=== PATIENT | female | born 1995 | race Asian ===

== ENCOUNTER 2017-06-16 08:08 | Inpatient (IN) | payer OTHER ==
[~2017-06-16] VITALS: Ht 160 cm; Wt 47.5 kg
[2017-06-16] VITALS (10 sets, daily range): BP systolic 98–104; BP diastolic 60–67; PULSE 60–90; RESP 17; TEMP 98–98.1; O2SAT 99–100
[2017-06-16] MEDS ORDERED: HEPARIN-NS/PF INJ 0 ML ONE (08:57)
[2017-06-16] MEDS ORDERED: HEPARIN SODIUM - IV 10,000 UNITS/10 ML VIAL ONE (08:57)
[2017-06-16] MEDS ORDERED: PROTAMINE SULFATE 50 MG/5 ML VIAL ONE (08:57)
[2017-06-16] MEDS ORDERED: ceFAZolin 2 GM PREMIX 0 ML ONE (08:57)
--- NOTE | 2017-06-16 09:03 | HHI.HP ---
History of Present Illness Chief Complaint: L LE claudication History of Present Illness 22 yo girl w B LE PAES, s/p R LE bypass. Has no arterial deficits on neutral positioning but + symptoms. Presents for popliteal release Past/Family/Social History Past Medical History PAES Past Surgical History R popliteal bypass R LE fasciectomy Social History nonsmoker Family History [place] Review of Systems Constitutional: DENIES: Diaphoretic episodes, Fatigue, Fever, Weight gain, Weight loss, Chills, Dizziness, Change in appetite, Night Sweats Respiratory: DENIES: Apneas, Cough, Snoring, Wheezing, Hemoptysis, Sputum production, Shortness of breath Physical Exam Neuro: alert, oriented HEENT: NC/AT. Neck: no JVD Heart: reg rate, no M Lungs: clear B Abdomen: NT Vascular: palp pulses Caprini VTE Risk Assessment Caprini VTE Risk Assessment: No/Low Risk (score <= 1) Caprini Risk Assessment Model Point Value = 1 Point Value = 2 Point Value = 3 Point Value = 5 Age 41-60 Minor surgery BMI > 25 kg/m2 Swollen legs Varicose veins or History of unexplained or recurrent spontaneous Oral contraceptives or hormone replacement Sepsis (< 1 month) Serious lung disease, including pneumonia (< 1 month) Abnormal pulmonary function Acute myocardial infarction Congestive heart failure (< 1 month) History of inflammatory bowel disease Medical patient at bed rest Age 61-74 Arthroscopic surgery Major open surgery (> 45 min) Laparoscopic surgery (> 45 min) Malignancy Confined to bed (> 72 hours) Immobilizing plaster cast Central venous access Age >= 75 History of VTE Family history of VTE Factor V Leiden Prothrombin [id number] Lupus anticoagulant Anticardiolipin antibodies Elevated serum homocysteine Heparin-induced thrombocytopenia Other congenital or acquired thrombophilia Stroke (< 1 month) Elective arthroplasty Hip, pelvis, or leg fracture Acute spinal cord injury (< 1 month) Prophylaxis Regimen Total Risk Factor Score Risk Level Prophylaxis Regimen 0-1 Low Early ambulation 2 Moderate Order ONE of the following: *Sequential Compression Device (SCD) *Heparin 5000 units SQ BID 3-4 Higher Order ONE of the following medications: *Heparin 5000 units SQ TID *Enoxaparin/Lovenox 40 mg SQ daily (WT < 150 kg, CrCl > 30 mL/min) *Enoxaparin/Lovenox 30 mg SQ daily (WT < 150 kg, CrCl > 10-29 mL/min) *Enoxaparin/Lovenox 30 mg SQ BID (WT < 150 kg, CrCl > 30 mL/min) AND/OR *Sequential Compression Device (SCD) 5 or more Highest Order ONE of the following medications: *Heparin 5000 units SQ TID (Preferred with Epidurals) *Enoxaparin/Lovenox 40 mg SQ daily (WT < 150 kg, CrCl > 30 mL/min) *Enoxaparin/Lovenox 30 mg SQ daily (WT < 150 kg, CrCl > 10-29 mL/min) *Enoxaparin/Lovenox 30 mg SQ BID (WT < 150 kg, CrCl > 30 mL/min) AND *Sequential Compression Device (SCD) Assessment and Plan Plan L popliteal release =- prone positioning Discharge Planning likely POD#1 Kip Castillo MD Jun 16, 2017 09:03
[2017-06-16] MEDS ORDERED: FAMOTIDINE 20 MG/2 ML VIAL ONE (09:08)
[2017-06-16] MEDS ORDERED: MIDAZOLAM HCL 2 MG/2 ML VIAL ONE (09:08)
[2017-06-16] MEDS ORDERED: DEXAMETHASONE SOD PHOS 4 MG/ML VIAL ONE (09:08)
[2017-06-16] MEDS ORDERED: LACTATED RINGER'S 1000 ML IV PRN (09:30)
[2017-06-16] MEDS ORDERED: SODIUM CHLORID 0.9% 500 ML IV PRN (09:30)
[2017-06-16] MEDS ORDERED: METOPROLOL TARTRATE 25 MG TAB PO PRN (09:30)
[2017-06-16] MEDS ORDERED: POVIDONE IODINE 5% (ANTISEPSIS KIT) 4 APPLICATIONS EACH NARE PRN (09:30)
[2017-06-16] MEDS ORDERED: CHLORHEXIDINE GLUCONATE 2 % 1 PACK (2 CLOTHS) TOPICAL PRN (09:30)
[2017-06-16] MEDS ORDERED: ceFAZolin INJ 1,000 MG VIAL ONE (09:33)
[2017-06-16] MEDS ORDERED: BUPIVACAINE HCL PF 0.5% 30 ML VIAL ONE (09:35)
[2017-06-16 09:50] LABS: AUTOMATED NEUTROPHIL # 2.4 TH/MM3 (1.8-7.7); BASOPHIL # 0.1 TH/MM3 (0-0.2); BASOPHIL % 1.2 % (0.0-2.0); EOSINOPHIL % 0.8 % (0.0-4.0); HEMATOCRIT 39.3 % (35.0-46.0); HEMO FLAGS DIFF FINAL; LYMPH % 38.1 % (9.0-44.0); LYMPHOCYTE # 1.8 TH/MM3 (1.0-4.8); MEAN CELL VOLUME 90.5 FL (80.0-100.0); MEAN CORPUSCULAR HEMOGLOBIN 30.7 PG (27.0-34.0); MONO % 9.3 % (0.0-8.0); NEUT % 50.6 % (16.0-70.0); PLATELET COUNT 200 TH/MM3 (150-450); RED BLOOD COUNT 4.34 MIL/MM3 (4.00-5.30); RED CELL DISTRIBUTION WIDTH 12.8 % (11.6-17.2); WHITE BLOOD COUNT 4.7 TH/MM3 (4.0-11.0)
[2017-06-16 09:54] LABS: BICARBONATE 22.9 MEQ/L (21.0-32.0); POTASSIUM 3.9 MEQ/L (3.5-5.1)
--- NOTE | 2017-06-16 10:43 | HHI.PR ---
cc: Kip Castillo MD Immediate Post Op Note Procedure Date: Jun 16, 2017 Pre Op Diagnosis: LEFT popliteal artery entrapment Post Op Diagnosis: LEFT popliteal artery entrapment Surgeon: Kip Castillo Marine Technician(s): Sophy Hale Procedure: LEFT popliteal release Findings: scar tissue around popliteal artery, successful release; normal pulses in distal popliteal artery Complications: none Specimen(s) removed: none Estimated blood loss: 10mL Anesthesia: General Drains: None Fluids: 600mL IVF Patient to: PACU Patient Condition: Good Date/Time of Procedure: SEE SURGICAL CARE RECORD Kip Castillo MD Jun 16, 2017 10:43
[2017-06-16] MEDS ORDERED: DO NOT ADM ANY ANTICOAGULANT DRUGS PRN (11:08)
[2017-06-16] MEDS ORDERED: ACETAMINOPHEN 1000 MG/100 ML 100 ML IV ONE ×2 (11:10→11:30)
[2017-06-16] MEDS ORDERED: *MEPERIDINE 25 MG INJ VIAL PERIprocedural Use ONLY ONE (11:22)
[2017-06-16] MEDS ORDERED: HYDROmorphone HCL 2 MG TAB PO PRN (11:30)
[2017-06-16] MEDS ORDERED: PROPOFOL 200 MG/20 ML AMP IV ONE (12:00)
[2017-06-16] MEDS ORDERED: ROCURONIUM INJ 50 MG/5 ML SYRINGE IV PUSH ONE (12:00)
[2017-06-16] MEDS ORDERED: GLYCOPYRROLATE 1 MG/5 ML SYRINGE IV PUSH ONE (12:00)
[2017-06-16] MEDS ORDERED: ONDANSETRON HCL 4 MG/2 ML VIAL IV PUSH ONE (12:00)
[2017-06-16] MEDS ORDERED: NEOSTIGMINE 5 MG/5 ML SYRINGE IV PUSH ONE (12:00)
[2017-06-16] MEDS ORDERED: LIDOCAINE HCL 1% PF 5 ML SYRINGE OTHER ONE (12:00)
[2017-06-16] MEDS ORDERED: ACETAMINOPHEN 650 MG/20.3 ML UDC PO PRN (17:45)
[2017-06-16] MEDS: FAMOTIDINE 20 MG TAB PO SCH (20:53)
[2017-06-17] VITALS (10 sets, daily range): BP systolic 104–107; BP diastolic 66–67; PULSE 55–81; RESP 16; TEMP 97.8–98.2; O2SAT 100
[2017-06-17] MEDS: FAMOTIDINE 20 MG TAB PO SCH (09:02)
[2017-06-17] MEDS ORDERED: NORC5TAB PO (09:36)
[2017-06-17] MEDS ORDERED: ENOXAPARIN SODIUM 30 MG/0.3 ML SYRINGE SQ SCH (10:00)
--- NOTE | 2017-06-17 10:31 | PD.VS.PN ---
Subjective POD #: 1 Procedure(s): LEFT popliteal release Subjective/Hospital Course Pt afebrile C/o mild incisional discomfort Incision intact w/o R/D/S LE warm w/ motor intact Objective Vitals/I&O Date Time Temp Pulse Resp B/P (MAP) Pulse Ox O2 Delivery O2 Flow Rate FiO2 06/17/17 09:00 72 06/17/17 08:00 76 06/17/17 07:23 97.8 81 16 107/67 (80) 100 06/17/17 07:00 73 06/17/17 06:04 61 06/17/17 05:05 55 06/17/17 04:00 60 06/17/17 03:00 98.2 61 16 104/66 (79) 100 06/17/17 03:00 67 06/17/17 02:00 62 06/17/17 01:00 59 06/16/17 23:45 17 06/16/17 23:00 60 06/16/17 23:00 98.1 68 17 98/61 (73) 100 06/16/17 22:00 64 06/16/17 21:00 72 06/16/17 20:00 88 06/16/17 19:15 98.0 71 17 100/67 (78) 99 06/16/17 19:00 71 06/16/17 18:36 17 06/16/17 18:00 86 06/16/17 17:00 80 06/16/17 16:30 98.1 88 17 104/60 (75) 99 06/16/17 16:18 90 06/16/17 15:00 80 18 115/63 (80) 99 Room Air 06/16/17 14:00 97.8 86 18 116/66 (83) 98 Room Air 06/16/17 13:00 78 18 113/67 (82) 99 Room Air 06/16/17 12:30 74 18 116/72 (87) 100 Room Air 06/16/17 12:15 75 18 117/72 (87) 100 Room Air 06/16/17 12:00 79 18 120/75 (90) 100 Room Air 06/16/17 11:45 94 18 118/76 (90) 100 Room Air 06/16/17 11:30 92 18 120/75 (90) 100 Room Air 06/16/17 11:15 95 17 112/68 (83) 95 Room Air 06/16/17 11:07 97.5 87 17 118/66 (83) 100 Room Air 06/17/17 06/17/17 06/17/17 06:59 14:59 22:59 Intake Total 480 ml Output Total 1200 ml Balance -720 ml Exam: GENERAL: A&Ox3,NAD, GCS 15 SKIN: Warm and dry. MUSCULOSKELETAL: No cyanosis, or edema. Palpable L/R DP/PT Incision intact with surgical glue w/o R/D/S LE warm w/ motor intact Assessment and Plan Assessment: (1) LEFT popliteal release (2) Left popliteal entrapment syndrome Plan Ms. Ca is a 22/F with a PMH of L sided popliteal entrapment syndrome Pt POD 1- s/p popliteal release Pt doing well w/o complications Pt ambulating w/o difficulty Pt w/ palpable distal pulses Plan Discussed and reviewed post operative care and management Pt clear for D/C Arranged post op f/u Agnes SIMONS [facility] [phone] Discharge Planning today Agnes Desai Jun 17, 2017 10:31
--- NOTE | 2017-06-17 10:39 | PD.VS.DC ---
Discharge Summary Admission Date: Jun 16, 2017 at 08:08 Discharge Date: Jun 17, 2017 Admission Diagnosis: (1) Left popliteal entrapment syndrome Discharge Diagnosis: (1) LEFT popliteal release (2) Left popliteal entrapment syndrome Brief History from admission 22 yo girl w B LE PAES, s/p R LE bypass. Has no arterial deficits on neutral positioning but + symptoms. Presents for popliteal release Procedure(s): LEFT popliteal release Significant Findings GENERAL: A&Ox3,NAD, GCS 15 SKIN: Warm and dry. MUSCULOSKELETAL: No cyanosis, or edema. Palpable L/R DP/PT Incision intact with surgical glue w/o R/D/S LE warm w/ motor intact Laboratory Tests Test 06/16/17 09:20 Monocytes (%) (Auto) 9.3 % (0.0-8.0) Chloride Level 108 MEQ/L (98-107) Estimat Glomerular Filtration Rate 85 ML/MIN (>89) Hospital Course: 22 yo girl w B LE PAES Pt s/p R LE bypass. Has no arterial deficits on neutral positioning but + symptoms. Presents for popliteal release POD 1- Doing well w/o complications Pt ambulating with expected mild incisional discomfort Palpable distal pulses present LE warm w/ motor intact Pt clear for D/C Pt to f/u in a few weeks in our OP clinic Allergies Coded Allergies Type Severity Reaction Last Updated Verified No Known Allergies 06/16/17 No 06/15/17 06/15/17 06/16/17 06/16/17 06/17/17 06/17/17 05:59 17:59 05:59 17:59 05:59 17:59 Intake Total 1290 ml 480 ml Output Total 160 ml 1200 ml Balance 1130 ml -720 ml Intake Oral 490 ml 480 ml IV Total 200 ml Other 600 ml Output Urine Total 150 ml 1200 ml Estimated Blood Loss 10 ml Laboratory Tests Test 06/16/17 09:20 White Blood Count 4.7 TH/MM3 Red Blood Count 4.34 MIL/MM3 Hemoglobin 13.3 GM/DL Hematocrit 39.3 % Mean Corpuscular Volume 90.5 FL Mean Corpuscular Hemoglobin 30.7 PG Mean Corpuscular Hemoglobin Concent 34.0 % Red Cell Distribution Width 12.8 % Platelet Count 200 TH/MM3 Mean Platelet Volume 8.6 FL Neutrophils (%) (Auto) 50.6 % Lymphocytes (%) (Auto) 38.1 % Monocytes (%) (Auto) 9.3 % Eosinophils (%) (Auto) 0.8 % Basophils (%) (Auto) 1.2 % Neutrophils # (Auto) 2.4 TH/MM3 Lymphocytes # (Auto) 1.8 TH/MM3 Monocytes # (Auto) 0.4 TH/MM3 Eosinophils # (Auto) 0.0 TH/MM3 Basophils # (Auto) 0.1 TH/MM3 CBC Comment DIFF FINAL Differential Comment Blood Urea Nitrogen 14 MG/DL Creatinine 0.84 MG/DL Random Glucose 85 MG/DL Calcium Level 8.7 MG/DL Sodium Level 138 MEQ/L Potassium Level 3.9 MEQ/L Chloride Level 108 MEQ/L Carbon Dioxide Level 22.9 MEQ/L Anion Gap 7 MEQ/L Estimat Glomerular Filtration Rate 85 ML/MIN Orders Procedure Category Date Status Time Complete Blood Count LAB 06/16/17 Complete With Diff 08:30 Basic Metabolic Panel LAB 06/16/17 Complete (Bmp) 08:30 Type And Screen BBK 06/16/17 Complete 08:30 Protamine Sulfate Inj MED 06/16/17 Complete (Protamine Sulfate 08:57 Heparin Inj (Heparin MED 06/16/17 Complete Inj) 08:57 Heparin-Ns/Pf Inj MED 06/16/17 Complete (Heparin-Ns/Pf Inj) 08:57 Cefazolin 2 Gm Premix MED 06/16/17 Complete (Ancef 2 Gm Premix 08:57 Midazolam Inj (Versed MED 06/16/17 Complete Inj) 09:08 Dexamethasone Inj MED 06/16/17 Complete (Decadron Inj) 09:08 Famotidine Inj MED 06/16/17 Complete (Pepcid Inj) 09:08 Lactated Ringer's MED 06/16/17 In Process 1000 Ml Inj (Lr 1000 M 09:30 Sodium Chlorid 0.9% MED 06/16/17 In Process 500 Ml Inj (Ns 500 M 09:30 Metoprolol Tartrate MED 06/16/17 In Process (Lopressor) 09:30 Povidone Iod 5% MED 06/16/17 In Process Antisepsis Kit 09:30 Chlorhexidine 2% MED 06/16/17 In Process Cloth (Chlorhexidine 09:30 Cefazolin Inj (Ancef MED 06/16/17 Complete Inj) 09:33 Bupivacaine Pf 0.5% MED 06/16/17 Complete Inj (Marcaine Pf 0.5 09:35 Admit To Inpatient ADMITTING 06/16/17 Transmitted Code Status CODE 06/16/17 Transmitted 10:43 Vital Signs (Adult) IGNACIO 06/16/17 Complete 10:43 Activity Oob Ad Elena IGNACIO 06/16/17 In Process 10:[address] Begum IGNACIO 06/16/17 In Process 10:43 Diet Heart Healthy DIET 06/16/17 Transmitted Lunch Famotidine (Pepcid) MED 06/16/17 In Process 21:00 Oxycodone (Roxicodone) MED 06/16/17 Complete 11:30 Hydromorphone MED 06/16/17 In Process (Dilaudid) 11:30 Inpatient ADMITTING 06/16/17 Transmitted Certification Acetaminophen 1000 MED 06/16/17 Complete Mg/100 Ml (Ofirmev 10 11:10 *Meperidine Inj MED 06/16/17 Complete (*Demerol Inj 11:22 Misc Nursing MED 06/16/17 In Process Information 11:08 Enoxaparin Inj MED 06/17/17 In Process (Lovenox Inj) 10:00 Acetaminophen 1000 MED 06/16/17 Complete Mg/100 Ml (Ofirmev 10 11:30 Am Admit Pre Op Care [facility] 06/16/17 Complete Class Iv Pacu Ea 30 [facility] 06/16/17 Complete MIN General/Pacu [facility] 06/16/17 Complete Pacu Cpcu Holding [facility] 06/16/17 Complete Hourly Acetaminophen 650 MED 06/16/17 In Process Mg/20 Ml Liq (Tylenol 17:45 Attending Discharge DISCHARGE 06/17/17 Transmitted Order Vital Signs Date Time Temp Pulse Resp B/P (MAP) Pulse Ox O2 Delivery O2 Flow Rate FiO2 06/17/17 09:00 72 06/17/17 08:00 76 06/17/17 07:23 97.8 81 16 107/67 (80) 100 06/17/17 07:00 73 06/17/17 06:04 61 06/17/17 05:05 55 06/17/17 04:00 60 12/21/17 03:00 98.2 61 16 104/66 (79) 100 06/17/17 03:00 67 06/17/17 02:00 62 06/17/17 01:00 59 06/16/17 23:45 17 06/16/17 23:00 60 06/16/17 23:00 98.1 68 17 98/61 (73) 100 06/16/17 22:00 64 06/16/17 21:00 72 06/16/17 20:00 88 06/16/17 19:15 98.0 71 17 100/67 (78) 99 06/16/17 19:00 71 06/16/17 18:36 17 06/16/17 18:00 86 06/16/17 17:00 80 06/16/17 16:30 98.1 88 17 104/60 (75) 99 06/16/17 16:18 90 06/16/17 15:00 80 18 115/63 (80) 99 Room Air 06/16/17 14:00 97.8 86 18 116/66 (83) 98 Room Air 06/16/17 13:00 78 18 113/67 (82) 99 Room Air 06/16/17 12:30 74 18 116/72 (87) 100 Room Air 06/16/17 12:15 75 18 117/72 (87) 100 Room Air 06/16/17 12:00 79 18 120/75 (90) 100 Room Air 06/16/17 11:45 94 18 118/76 (90) 100 Room Air 06/16/17 11:30 92 18 120/75 (90) 100 Room Air 06/16/17 11:15 95 17 112/68 (83) 95 Room Air 06/16/17 11:07 97.5 87 17 118/66 (83) 100 Room Air 06/16/17 09:00 97.9 85 18 118/75 (89) 100 Discharge Condition: Good Discharge Disposition: Discharge Home Discharge Instructions: Regular diet Continue a daily walking regimen w/ activities as tolerated Leave incision open to air May shower NO swimming or tub baths until incision is fully healed Do not apply any creams or ointments to incision as it may loosen the surgical glue You were RX a narcotic pain medication- take with a stool softner as it may cause constipation Do not drive while taking pain medication as RX pain medication may cause dizziness Call the office to report any new onset redness, drainage, swelling, fever or chills Any questions or concerns: Call [facility] [phone] Agnes Desai Jun 17, 2017 10:39
--- NOTE | 2017-06-17 11:56 | MP ---
cc: KIP CASTILLO MD DATE OF SURGERY 06/16/2017 PREOPERATIVE DIAGNOSIS Left popliteal artery entrapment. POSTOPERATIVE DIAGNOSIS Left popliteal artery entrapment. PROCEDURE Left popliteal release. ATTENDING SURGEON Kip Castillo. ASSISTANT MANAGER BILINGUAL SURGEON Sophy Hale. ANESTHESIA General. INDICATIONS Ms. Ca is a 22-year-old lady who has bilateral popliteal artery entrapment. Her right presented worse than her left and she needed popliteal artery bypass. She has recovered from this and now has claudication symptoms with long distances and popliteal compression on dorsiflexion and plantar flexion on radiographic imaging. She is taken to the operating room for popliteal release. DESCRIPTION OF PROCEDURE Informed consent was obtained from the patient. She was taken to the operating room. An appropriate timeout was taken to ensure the patient's identity, operative site and planned procedure. One gram of Ancef was initiated prior to skin incision and will be discontinued after a single preoperative dose. Everyone in the room agreed with the timeout and we proceeded. She was intubated and placed prone with all pressure points carefully padded. Her posterior thighs, knees and calves were prepped and draped and a curvilinear S-shaped incision was made in the below-knee popliteal fossa. The fascia was divided longitudinally and the small saphenous vein was identified and dissected free down back to its entry into the popliteal vein. The popliteal vein was mobilized without difficulty. The popliteal artery was identified and skeletonized. There was dense scar tissue running transversely on the superficial aspect of the popliteal artery. The popliteal artery was completely freed up and proximally and distally had equal pulses. The wound was irrigated, made hemostatic and closed with 2-0 Polysorb, 3-0 Polysorb and 4-0 Monocryl. Marcaine was infiltrated and the patient was then extubated and transferred to the recovery room in stable condition. I was present and scrubbed for the entire procedure. Kip Castillo MD RJF/BT /11:27 AM /11:42 AM
== END 2017-06-17 10:38 | disposition home or self-care (01) | DRG 254 ==
LOC: HSDI 08:08 → HCPC 16:05
PROVIDERS: ADMIT Surgery; ATTEND Surgery
PROC: 04N Lower Arteries, Release (ICD-10-PCS; principal; 2017-06-16 09:27)
DX: I77.89 Other specified disorders of arteries and arterioles (principal)
CPT/HCPCS: 80048; 85025; 86850; 86900; 86901; J0131; J0690; J1100; J1644; J1650; J2175; J2250; J2405; J2710; J2720; J7120